=== PATIENT | male | born 1975 | race African-American/Black ===

== ENCOUNTER 2016-11-09 20:50 | Emergency (ER) | payer SELFPAY ==
[~2016-11-09] VITALS: Ht 190.5 cm; Wt 119.6 kg
[2016-11-09] MEDS ORDERED: BENADRYL 50MG C50 MG PO (23:50)
[2016-11-10 00:05] VITALS: BP 126/78
== END 2016-11-10 00:09 | disposition home or self-care (01) | DRG 607 ==
LOC: ED 20:50
DX: R22.1 Localized swelling, mass and lump, neck (principal)

== ENCOUNTER 2018-11-30 01:46 | Emergency (ER) | payer SELFPAY ==
[~2018-11-30] VITALS: Ht 190.5 cm; Wt 119.0 kg
[~2018-11-30 01:46] MED LIST: BENADRYL 50MG C50 MG PO
[2018-11-30 02:53] LABS: HEMATOCRIT 43.2 % (39.0-50.0); HEMOGLOBIN 14.5 g/dl (14.0-18.0); IMMATURE GRANULOCYTES 0.7 % (0.0-5.0); MEAN CELL VOLUME 96.6 fL CALC (80.0-100.0); MEAN CORPUSCULAR HGB 32.4 pG CALC (26.0-32.0); MEAN CORPUSCULAR HGB CONC 33.6 g/L CALC (32.0-36.0); NEUT# 3.17 thou/uL (1.82-7.42); RED BLOOD COUNT 4.47 mill/uL (4.70-6.10); RED CELL DISTRI WIDTH 12.7 % (11.5-15.5)
[2018-11-30 03:55] LABS: URINE BILIRUBIN - DIPSTICK NEGATIVE (NEGATIVE); URINE BLOOD DIPSTICK NEGATIVE (NEGATIVE); URINE COLOR YELLOW; URINE GLUCOSE - DIPSTICK NEGATIVE (NEGATIVE); URINE KETONE NEGATIVE (NEGATIVE); URINE LEUK ESTERASE NEGATIVE (NEGATIVE); URINE NITRITE - DIPSTICK NEGATIVE (Negative); URINE PROTEIN - DIPSTICK NEGATIVE (NEG-TRACE); URINE UROBILINOGEN - DIPSTICK 0.2 E.U./dL (0.2)
[2018-11-30 03:57] LABS: ALBUMIN 4.7 g/dL (3.2-5.0); ALKALINE PHOSPHATASE 46 u/l (38-126); ANION GAP 14 (6-22 (CALC)); BILIRUBIN, TOTAL 0.5 mg/dL (0.0-1.4); BUN 13 mg/dL (9-20); BUN/CREATININE RATIO 11 (12-20 (CALC)); CARBON DIOXIDE 27 mmol/l (22-30); CHLORIDE 105 mmol/l (95-108); CREATININE 1.1 mg/dL (0.7-1.3); GFR > 60 ML/MIN (>=60 (CALC)); GFR FOR AFR.AMER. > 60 ML/MIN (>=60 (CALC)); POTASSIUM 4.3 mmol/l (3.5-5.1); SGOT/AST 32 u/l (17-59); SODIUM 142 mmol/l (137-146); TOTAL PROTEIN 7.7 g/dL (6.3-8.2)
[2018-11-30] MEDS ORDERED: ATIVAN0.5 MG PO (04:00)
[2018-11-30 04:03] LABS: BARBITURATES NEGATIVE (NEGATIVE); COCAINE NEGATIVE (NEGATIVE); METHADONE NEGATIVE (NEGATIVE); OXCYCODONE NEGATIVE (NEGATIVE); TETRAHYDROCANNABIONOL POSITIVE (NEGATIVE); TRICYLIC ANTIDEPRESSANTS NEGATIVE (NEGATIVE)
[2018-11-30 04:11] VITALS: BP 142/92
== END 2018-11-30 04:08 | disposition home or self-care (01) | DRG 880 ==
LOC: ED 01:46
PROVIDERS: Emergency Medicine
DX: F41.9 Anxiety disorder, unspecified (principal); F17.210 Nicotine dependence, cigarettes, uncomplicated